=== PATIENT | female | born 1945 | race Caucasian/White ===

== ENCOUNTER → 2016-08-13 | Outpatient (CLI) | payer OTHER ==
[~2016-08-13] MED LIST: ACET-1256 PO; B-CO-25 PO; BIOF500C2 PO; BIOT1CAP8 PO; CHOL20005 PO; CLC100 PO; CRAN1TAB6 PO; CYAN100020 PO; DIPH-437 PO; ESCI10TA17 PO; HYDR-4330 PO; MAGN500C PO; MULT-506 PO; MULT-663 PO
--- NOTE | 2016-08-13 09:59 | DIAGNOSTIC IMAGING REPORT ---
RENAL ULTRASOUND HISTORY: D30.00 Renal [id number] COMPARISON: None. FINDINGS: Right kidney: Prior nephrectomy. No soft tissue masses within the right renal fossa. Left kidney: 11.7 cm. No hydronephrosis. Normal corticomedullary differentiation and cortical thickness. Bladder: No bladder wall thickening. The left ureteral jet was identified. IMPRESSION: 1. Prior right nephrectomy. No soft tissue masses within the right renal fossa. 2. Normal left kidney. Electronically signed by: Carlito Carpio M.D. 08/13/2016 9:58 AM Dictated Date/Time: 08/13/2016 9:51 AM
== END | disposition home or self-care (01) ==
LOC: C.ULTR 09:04
PROVIDERS: ATTEND Urology
DX: D30.00 Benign neoplasm of unspecified kidney (principal)

== ENCOUNTER → 2017-08-16 | Outpatient (CLI) | payer OTHER ==
[~2017-08-16] VITALS: Ht 160 cm; Wt 100.6 kg
[2017-08-16 16:13] VITALS: BP 147/89; PULSE 66; BMI 37.1
[2017-08-16 16:19] VITALS: BP 129/82; PULSE 65; Ht 160 cm; Wt 100.6 kg
== END | disposition home or self-care (01) ==
LOC: C.NEUR 13:45
PROVIDERS: ATTEND Internal Medicine Pulmonary Disease
DX: R53.83 Other fatigue (principal); G47.19 Other hypersomnia; E66.9 Obesity, unspecified

== ENCOUNTER → 2017-08-21 | Outpatient (CLI) | payer OTHER ==
--- NOTE | 2017-08-22 05:39 | PAP/PSG TECHNICIAN REPORT ---
[facility] Silk Weaver Polysomnogram Report Study name: None Report date: 08/22/2017 Study date: 08/21/2017 Referring Physician: DR. AZIZA HOLT Name: MICHAEL VARNER Interpreting Physician: Jakob Carrion M.D. Date of : 1945 Silk Weaver: Anaya Guillen, PSGT. Sex: Female Age: 71 StudyType: PSG Weight: 211 lbs Height: 71 years, Height 5' 3" Neck Circum:15 inches BMI: 37.37 Medications: Arnuity Ellipta, Astaxanthin 4 mg, Biotin 5000 mg, Citrucel +D tabs, Cranberry 400 mg, Curcumin, Cyanocobalamin 2500 mcg, Escitalopram Oxalate 10 mg, Flintstones Complete 60 mg, [place] 150 mg, Magnesium Caps. Patient History 71-year-old female in room 5, presents for a baseline sleep study. Patient states that she has excessive daytime fatigue and that she snores. She states that she has been this way for many years.Ess= 16, Neck = 15 inches. Parameters Monitored NPSG: E1-M2, E2-M1, Fp1-M2, Fp2-M1, F3-M2, F4-M2, F4-M1, C3-M2, C4-M2, C4-M1, O1-M2, O2-M2, O2-M1, T3-M2, T4-M1, P3-M2, P4-M1, CHIN1, CHIN2, HR, EKG, Legs, PFLOW, SNOR, FLOW, CFLOW, Tidal Volume, THOR, ABDO, SpO2, PLTH, CPRESS, ETCO2 Wave, ETCO2, pH Sleep Architecture Sleep Stages Time at Lights Off 10:40:05 PM STAGES Time (min.) TST (%) Time at Lights On 5:32:05 AM Wake 74.5 -- Total Recording Time (TRT) 410.50 min. N1 1.5 0 Total Sleep Period (TSP) 339.5 min. N2 269.5 80 Total Sleep Time (TST) 336.0min. N3 22.5 7 Awake Time 74.5 min. REM 42.5 13 Wake after Sleep Onset 5.0 min. Sleep Efficiency (SE) 82 % Sleep Onset Latency (OLIVER) 71.0 min. Number of Stage 1 Shifts None Awakenings 2 Stage Changes 11 Number of REM periods 1 REM 42.5 13 REM Latency 245.0 min. NREM 293.5 87 Body Position Analysis Supine Right Left Side Prone Vertical Total Sleep Time (min.) 223.9 0.0 154.9 154.88 0.0 4.8 Total Sleep Time (%) 54% 0% 46% 46 0% N/A% Total Sleep Time REM (min.) 42.5 0.0 0.0 None 0.0 0.0 Total Sleep Time NREM (min.) 138.6 0.0 154.9 None 0.0 0.0 Intermittent Wake (min.) 42.8 0.0 26.9 None 0.0 4.8 Total Sleep Period (%) 53% None None None None None Arousals Myoclonus (PLM) * Events Count Index Events Count Index Spontaneous 20 4 Events Awake (PLMW) 1 0.8 Respiratory 1 0.2 Events Asleep w/ Arousal (PLMA) 0 0.0 PLM 0 0 Events Asleep w/o Arousal (PLMS) 18 3.2 Snoring 12 2 Total Asleep 18 3.2 Total 33 6 Total 19 3 Respiratory Analysis * CA OA MA CH H RERA Total Count 13 0 0 0 7 1 20 Index 2.3 0.0 0.0 0 1.3 0 3.8 Mean Duration 15.0 0.0 0.0 0.00 16.6 10.6 15.3 Longest Duration 20.5 0.0 0.0 0.00 0.0 10.6 23.4 Respiratory Event Summary Total Supine ~Supine Right Left Prone REM NREM Apneas Count 13 9 4 N/A 4 N/A 0 13 Index 2.3 3 2 N/A 1.5 N/A 0 3 Hypopneas (4% Desat) Count 7 7 0 N/A 0 N/A 6 1 Index 1.3 2.3 0 N/A 0.0 N/A 8.5 0.2 Apneas & All Hypopneas Count 20 16 4 N/A 4 N/A 6 14 Index 3.6 5 2 N/A 2 N/A 8.5 2.9 Respiratory Events (Education Professional+All Hyp+RERA) Count 20 17 4 N/A 4 N/A 6 14 Index 3.8 6 2 N/A 1.5 N/A 8.5 3.1 Respiratory Related Arousal Count 1 17 0 N/A 0 N/A 0 1 Index 0.2 0 0 N/A 0 N/A 0 0 Snoring Analysis Supine Right Left Prone REM NREM Total Snore duration 48.6 min Snores count 1,553 N/A 664 N/A 287 1,930 2,217 Snore mean duration 1.3 Sec Snores index 514 N/A 257 N/A 405.2 394.5 395.9 TST with snoring (%) 14.5% Desaturation Event Summary: Minimum %SpO2 Event Count Mean/Min/Max Duration(sec.) Desaturation Index % Time In Bed > 90 17 17.9 / 10.3 / 56.3 3.9 63.5 86 - 90 8 11.7 / 4.5 / 19.5 3.2 36.4 81 - 85 0 N/A 0.0 0.1 76 - 80 0 N/A 0.0 0.0 71 - 75 0 N/A 0.0 0.0 66 - 70 0 N/A 0.0 0.0 61 - 65 0 N/A 0.0 0.0 56 - 60 0 N/A 0.0 0.0 51 - 55 0 N/A 0.0 0.0 < 50 0 N/A 0.0 0.0 Total REM NREM Awake <50% 0.0 min. 0.0 min. 0.0 min. 0.0 min. 51 - 60% 0.0 min. 0.0 min. 0.0 min. 0.0 min. 61 - 70% 0.0 min. 0.0 min. 0.0 min. 0.0 min. 71 - 80% 0.0 min. 0.0 min. 0.0 min. 0.0 min. 81 - 90% 149.7 min. 15.1 min. 126.7 min. 7.9 min. 91 - 100% 260.7 min. 27.4 min. 166.8 min. 66.5 min. Average 91 91 91 92 Minimum SpO2 85 85 87 87 Desaturation Event Index 2.8 9.9 2.5 0.0 # Desat. Events below 89% 12 7 5 N/A Time(%) with Saturation below 89% 1.7 0.5 1.1 0.1 Time(min.) with Saturation below 89% 6.9 1.9 4.5 0.5 Time (mins) REM (mins) NREM (mins) % of TST SpO2 Below 90% 19 7 N12 11.6 SpO2 Below 88% 3 0 0 0 Heart Rate Analysis Min (bpm) Max (bpm) Average (bpm) Awake 55 70 59 NREM 50 70 55 REM 54 63 57 Overall 50 70 55 Supplemental O2 Values Minimum O2 level: None Value Start Time End Time Silk Weaver Comments PSG Study MS. Varner slept in the left, and supine positions. No cardiac arrhythmia or PLM's noted. No bruxism noted. Snoring was noted and scored as a 3 on a scale of 1 through 5. (0=no snoring, 5=snoring loud enough to be heard through a closed door or down the river way) Ms. Varner awoke to use the restroom zero times during the night. Ms. Varner stated, I did not sleep as well as I do when I am in my own bed. The final report will be interpreted and signed by a sleep physician. The completed physician report will then be placed in the patient medical record. Therapy (cm H2O) 0 TIB (min.) 410.5 TST (min.) 336.0 Sleep Onset (min.) 71.0 REM Onset From Sleep (min.) 245.0 Sleep Efficiency % 82 Wakefulness (%) 18 Wakefulness (min.) 74.5 NREM 1 (%) 0 NREM 1 (min.) 1.5 NREM 2 (%) 80 NREM 2 (min.) 269.5 NREM 3 (%) 7 NREM 3 (min.) 22.5 REM (%) 13 REM (min.) 42.5 # Arousals 33 Arousal Index 6 # Snore 2,217 Snore Index 395.9 AHI 3.6 AHI Supine 5 AHI Non-Supine 2 NREM AHI 2.9 REM AHI 8.5 RDI 3.8 # Obstructive Apnea 0 # Central Apnea 13 # Mixed Apnea 0 # Hypopneas 7 RERAs 1 Total Respiratory Events 22 Time Below SpO2 89% (min.) 6.4 Mean NREM SpO2 (%) 91 Mean REM SpO2 (%) 91 Mean Sleep SpO2 (%) 91 Min NREM SpO2 (%) 87 Min REM SpO2 (%) 85 Position Supine (min.) 223.9 Position Non-supine (min.) 154.9 LM Index Sleep 3.2 LM Index NREM 3.7 LM Index REM 0.0 Mean Heart Rate (bpm) 55 Min Heart Rate (bpm) 50
--- NOTE | 2017-08-23 10:13 | POLYSOMNOGRAPH REPORT ---
CLINICAL DATA: 71-year-old female with BMI of 37.4, referred by myself and Dr. Polanco for a sleep study. She has excessive daytime fatigue and snoring. Her [place] Sleepiness score is 16/24. SLEEP ARCHITECTURE: Total sleep period was 339.5 minutes. Total sleep time was 336 minutes divided between 293.5 minutes of non-REM sleep and 42.5 minutes of REM sleep. Sleep onset latency was delayed at 71 minutes. REM latency was delayed at 245 minutes. Sleep efficiency was 82%. Wake after sleep onset was 5 minutes. Sleep consisted of stage N1 less than 1%, stage N2 80%, stage N3 7% and REM 13%. AROUSAL DATA: 33 arousals were recorded for an index of 6 per hour. 20 were due to spontaneous arousals. 12 were due to snoring. PERIODIC LIMB MOVEMENT DATA: 18 limb movements during sleep were noted for an index of 3.2 per hour with arousal index of 0 per hour. RESPIRATORY DATA: No evidence of clinically significant sleep apnea was seen. The AHI was 3.6. The RDI was 3.8. There were 13 central apneic episodes. The longest apneic episode was 20.5 seconds. There were 7 hypopneic episodes, the mean duration of which was 16.6 seconds. There was 1 RERA 10.6 seconds in duration. OXIMETRY DATA: No significant hypoxemia was seen. Oxygen dominga was 85%. Mean saturation was 91%. Time below 88% was 3 minutes. SNORING DATA: Loud snoring was recorded throughout the night. There were a total of 2217 snores throughout the night and percentage of total sleep time with snoring was 14.5%. EKG: Heart rates ranged from 50-70 beats per minute. No arrhythmias were noted. [employer]'S COMMENTS: The patient slept in the left and supine positions. Snoring was moderate, rated 3 on a scale of 1 through 5. IMPRESSION: No evidence of clinically significant sleep apnea/hypopnea, nocturnal hypoxemia or abnormal limb movements during sleep. The patient did have snoring throughout the night which did cause intermittent arousals. RECOMMENDATIONS: The patient may benefit from ENT evaluation or use of nasal sprays for snoring. Clinical correlation is needed. [facility] CENTERJass
== END | disposition home or self-care (01) ==
LOC: C.NEUR 20:00
PROVIDERS: ATTEND Internal Medicine Pulmonary Disease
DX: G47.19 Other hypersomnia (principal); R53.83 Other fatigue; E66.9 Obesity, unspecified

== ENCOUNTER → 2017-09-10 | Outpatient (CLI) | payer OTHER ==
[~2017-09-10] VITALS: Ht 160 cm; Wt 99.1 kg
[2017-09-10 15:29] VITALS: BP 133/83; PULSE 66; Ht 160 cm; Wt 99.1 kg
== END | disposition home or self-care (01) ==
LOC: C.NEUR 13:39
PROVIDERS: ATTEND Physician Assistant Medical
DX: R06.83 Snoring (principal); R53.83 Other fatigue; E66.9 Obesity, unspecified

== ENCOUNTER → 2017-12-30 | Outpatient (CLI) | payer OTHER ==
[~2017-12-30] MED LIST changes: +ASTA1CAP PO; -B-CO-25 PO; -BIOT1CAP8 PO; -CLC100 PO; +COEN100C7 PO; -DIPH-437 PO; +FLUT0.15 INTNAS; -HYDR-4330 PO; +KRIL1000 PO; +METH500T3 PO; +MULT-513 PO; -MULT-663 PO; +POLY335019 PO; +TURM1CAP2 PO; +[UNRECOGNIZED DRUG - OTHER] PO; +[UNRECOGNIZED DRUG - REMARK] PO
--- NOTE | 2017-12-30 13:43 | DIAGNOSTIC IMAGING REPORT ---
CHEST 2 VIEWS ROUTINE CLINICAL HISTORY: Preoperative chest COMPARISON STUDY: 05/24/2015 FINDINGS: The cardiac and mediastinal contours are normal. There is no evidence of focal pulmonary consolidation. There is no evidence of failure. No pleural effusions are visualized.[ IMPRESSION: No active disease in the chest. Electronically signed by: Kameron Blackwell M.D. 12/30/2017 1:42 PM Dictated Date/Time: 12/30/2017 1:42 PM
[2017-12-30 14:54] LABS: BASO % 0.7 %; BASO ABS # 0.03 K/uL (0-0.2); EOS % 1.8 %; EOS ABS # 0.08 K/uL (0-0.5); HEMATOCRIT 41.9 % (37-47); HEMOGLOBIN 13.3 g/dL (12.0-16.0); LYMPH % 26.4 %; MEAN CELL VOLUME 92.7 fL (80-100); MEAN CORPUSCULAR HEMOGLOBIN 29.4 pg (25-34); MEAN CORPUSCULAR HGB CONC 31.7 g/dl (32-36); MEAN PLATELET VOLUME 11.6 fL (7.4-10.4); MONO % 9.5 %; MONO ABS # 0.43 K/uL (0.11-0.59); NEUT % 61.6 %; NEUT ABS # 2.81 K/uL (1.4-6.5); PLATELET COUNT 196 K/uL (130-400); RED CELL DISTRIBUTION WIDTH CV 15.3 % (11.5-14.5); RED CELL DISTRIBUTION WIDTH SD 52.6 fL (36.4-46.3); WHITE BLOOD COUNT 4.55 K/uL (4.8-10.8)
[2017-12-30 15:08] LABS: PTT PATIENT 28.9 SECONDS (21.0-31.0)
[2017-12-31 05:56] LABS: HEMOGLOBIN A1C 5.6 % (4.5-5.6)
== END | disposition home or self-care (01) ==
LOC: C.RAD 12:42
PROVIDERS: ATTEND Orthopaedic Surgery
DX: Z01.818 Encounter for other preprocedural examination (principal); M17.11 Unilateral primary osteoarthritis, right knee